=== PATIENT | female | born 1960 | race Hispanic/Latino ===

== ENCOUNTER → 2020-05-03 | Outpatient (CLI) | payer OTHER, MEDICARE ==
[~2020-05-03] MED LIST: AMAN100C12 PO; AROM1FL. PO; ASPI-1443 PO; BACL10TA PO; BIOT1CAP3 PO; BUPR-49 PO; CLOP75TA14 PO; FURO-152 PO; IOHEXOL-350 75 ML VIAL IV ONE; MAGN400C PO; ROSU5TAB PO; VIT B12 PO
== END | disposition home or self-care (01) ==
LOC: RAH 07:39
PROVIDERS: ATTEND Internal Medicine Cardiovascular Disease
DX: I65.23 Occlusion and stenosis of bilateral carotid arteries (principal); I67.9 Cerebrovascular disease, unspecified; Z95.820 Peripheral vascular angioplasty status with implants and grafts
CPT/HCPCS: 70498; Q9967

== ENCOUNTER → 2022-08-06 | Outpatient (CLI) | payer MEDICARE ==
[~2022-08-06] MED LIST changes: -AMAN100C12 PO; +AMAN100C14 PO; +CLOP-31 PO; -CLOP75TA14 PO; -IOHEXOL-350 75 ML VIAL IV ONE
== END | disposition home or self-care (01) ==
LOC: SHCH 09:15
PROVIDERS: ATTEND Internal Medicine Cardiovascular Disease
DX: I65.23 Occlusion and stenosis of bilateral carotid arteries (principal); I67.9 Cerebrovascular disease, unspecified
CPT/HCPCS: 93880